=== PATIENT | female | born 1995 | race Caucasian/White ===

== ENCOUNTER 2017-10-05 18:51 | Emergency (ER) | END 2017-10-05 23:40 | disposition home or self-care (01) ==

== ENCOUNTER 2018-03-22 17:30 | Inpatient (IN) | END 2018-03-25 18:15 | disposition home or self-care (01) | DRG 775 ==

== ENCOUNTER 2018-07-11 08:42 | Emergency (ER) | END 2018-07-11 11:01 | disposition home or self-care (01) ==

== ENCOUNTER 2018-08-13 11:15 | Inpatient (IN) | payer MEDICAID ==
[~2018-08-13] VITALS: Wt 46.8 kg
[2018-08-13] VITALS (22 sets, daily range): BP systolic 91–111; BP diastolic 45–63; PULSE 72–105; RESP 13–20
[~2018-08-13 11:15] MED LIST: DESFLURANE 15 MIN ONE; ROCURONIUM 50 MG INJ ONE; SELE118S2 TOP; SUCCINYLCHOLINE CHLORIDE 100 MG/5 ML SYG IV ONE; TERB250T13 PO
[2018-08-13] MEDS ORDERED: SOD CHLORIDE 0.9% 1,000 ML IV STA ×2 (12:13→13:18)
[2018-08-13] MEDS ORDERED: morphine 2 MG INJ IV STA (12:13)
--- NOTE | 2018-08-13 12:16 | ERD ---
ER Documentation Chief Complaint Chief Complaint VAG BLEED WITH PELVIC PAIN X 2 WEEKS; DENIES PREG HPI 23-year-old female , presents to the emergency department, complaining of 2 weeks with intermittent episodes of left pelvic pain, associated with vaginal bleeding. The patient is a status post 4 months ago, she is currently breast-feeding; she has not had any test done at home and she states that she is started being sexually active 2 months without protection. The pain is dull, constant, located in the left lower quadrant, 10/10, associated with dizziness. ROS All systems reviewed and are negative except as per history of present illness. Medications Home Meds Active Scripts Terbinafine Hcl* (Terbinafine Hcl*) 250 Mg Tablet, 250 MG PO DAILY for scalp fungus for 42 Days, #42 TAB Prov:MERCY WOODARD 07/11/18 Selenium Sulfide* (Selenium Sulfide*) 118 Ml Shampoo, 1 APPLIC TOP DAILY for scalp fungus for 30 Days, #1 BOTTLE Prov:MERCY WOODARD 07/11/18 Allergies Allergies: Coded Allergies: No Known Allergies (Verified Allergy, Unknown, 08/13/18) PMhx/Soc Medical and Surgical Hx: pt denies Medical Hx, pt denies Surgical Hx Hx Alcohol Use: No Hx Substance Use: No Hx Tobacco Use: No Smoking Status: Never smoker Physical Exam Vitals Vital Signs Date Temp Pulse Resp B/P (MAP) Pulse Ox O2 O2 Flow FiO2 Time Delivery Rate 08/13/18 88 18 119/72 98 Room Air 13:31 (88) 08/13/18 98.0 91 18 99/54 (69) 99 11:28 Physical Exam Const: Patient pale, in distress due to pain. Head: Atraumatic Eyes: Normal Conjunctiva ENT: Normal External Ears, Nose and Mouth. Neck: Full range of motion. No meningismus. Resp: Clear to auscultation bilaterally Cardio: Regular rate and rhythm, no murmurs Abd: Guarded, tender to palpation in the pelvic area. : Normal external genitalia, cervical motion tenderness, active mild vaginal bleeding. Skin: No petechiae or rashes Back: No midline or flank tenderness Ext: No cyanosis, or edema Neur: Awake and alert Psych: Normal Mood and Affect Result Diagram: 08/13/18 1227 Results 24 hrs Laboratory Tests Test 08/13/18 12:27 08/13/18 12:31 White Blood Count 6.7 10^3/ul Red Blood Count 3.57 10^6/ul Hemoglobin 10.1 g/dl Hematocrit 30.5 % Mean Corpuscular Volume 85.4 fl Mean Corpuscular Hemoglobin 28.3 pg Mean Corpuscular Hemoglobin Concent 33.1 g/dl Red Cell Distribution Width 13.9 % Platelet Count 313 10^3/UL Mean Platelet Volume 9.1 fl Immature Granulocytes % 0.300 % Neutrophils % 71.7 % Lymphocytes % 12.8 % Monocytes % 12.2 % Eosinophils % 2.7 % Basophils % 0.3 % Nucleated Red Blood Cells % 0.0 /100WBC Immature Granulocytes # 0.020 10^3/ul Neutrophils # 4.8 10^3/ul Lymphocytes # 0.9 10^3/ul Monocytes # 0.8 10^3/ul Eosinophils # 0.2 10^3/ul Basophils # 0.0 10^3/ul Nucleated Red Blood Cells # 0.0 10^3/ul Urine Color LAURA Urine Clarity SLIGHTLY CLOUDY Urine pH 6.0 Urine Specific [place] 1.028 Urine Ketones NEGATIVE mg/dL Urine Nitrite NEGATIVE mg/dL Urine Bilirubin NEGATIVE mg/dL Urine Urobilinogen 1+ mg/dL Urine Leukocyte Esterase NEGATIVE Aaron/ul Urine Microscopic RBC > 182 /HPF Urine Microscopic WBC 27 /HPF Urine Squamous Epithelial Cells FEW /HPF Urine Mucus FEW /HPF Urine Hemoglobin 3+ mg/dL Urine Glucose NEGATIVE mg/dL Urine Total Protein 1+ mg/dl POC Beta HCG, Qualitative POSITIVE Current Medications Medications Dose Sig/Ramila Start Time Status Last (Trade) Ordered Route PRN Stop Time Admin Dose Reason Admin Sodium 1,000 ml @ Q1H STAT 08/13/18 DC 08/13/18 Chloride 1,000 mls/hr IV 12:13 12:33 08/13/18 13:12 Morphine 1 mg ONCE STAT 08/13/18 DC 08/13/18 Sulfate IV 12:13 12:33 (morphine) 08/13/18 12:18 Sodium 1,000 ml @ Q1H STAT 08/13/18 08/13/18 Chloride 1,000 mls/hr IV 13:18 13:46 08/13/18 14:17 1 mg ONCE STAT 08/13/18 DC 08/13/18 Hydromorphone IV 13:36 13:46 HCl 08/13/18 (Dilaudid) 13:38 Patient: CHINYERE ZUNIGA : 1995 Age: 23 Sex: F MR #: [id number] DOS: 08/13/18 1213 Ordering MD: RADHA MARTINES MD Location: [facility] [place] Room/Bed: PROCEDURE: US OB. CLINICAL INDICATION: First trimester hemorrhage. Left pelvic pain. TECHNIQUE: Transabdominal and transvaginal views of the pelvis are available for review. COMPARISON: No prior studies are available for comparison. FINDINGS: The uterus is anteverted. It measures 6.2 by 3.2 by 4.8 cm. Uterus is of normal contour and echogenicity. No intrauterine gestation sac is present. Endometrial stripe complex is well demarcated. There is no fluid within the canal. The ovaries are not confidently visualized. There is a small to moderate volume of free fluid. Noted is a 9.3 x 3.0 x 9.0 cm complex mass with heterogeneous echogenicity anterior to the uterus. This may represent a large clot. IMPRESSION: No intrauterine gestation seen. The ovaries were not identified. Small to moderate volume free fluid pelvis. 9.3 x 3.0 x 9.0 cm complex heterogeneous mass anterior to the uterus. This may represent a large blood clot. Ruptured ectopic cannot be ruled out. Correlation with beta HCG levels is strongly recommended. .Raymundo Ballard MD, MD Date Time Electronically viewed and signed by .Raymundo Ballard MD, MD on 08/13/2018 13:09 .A/ CC: RADHA MARTINES MD [phone] Procedures/MDM Differential diagnosis include but not limited to: UTI, threatening , incomplete versus complete , ectopic , physiologic implantation bleeding, molar . Physical examination and clinical presentation most likely consistent with ruptured ectopic . Dr. Cardozo OB oncall contacted at 13:15h; case d/w Dr. Cardozo, last PO 20:00hs; Dr Cardozo will contact OR. Results and clinical impression discussed with patient who agrees with management. The patient was instructed regarding the outcomes and the potential complications. Disclaimer: Inadvertent spelling and grammatical errors are likely due to EHR/dictation software use and do not reflect on the overall quality of patient care. Also, please note that the electronic time recorded on this note does not necessarily reflect the actual time of the patient encounter. Departure Diagnosis: Primary Impression: Vaginal bleeding Additional Impression: Ruptured ectopic Condition: Stable RADHA MARTINES MD Aug 13, 2018 12:16
[2018-08-13] MEDS ORDERED: HYDROmorphONE 1 MG/ML SYG IV STA (13:36)
--- NOTE | 2018-08-13 14:11 | PREAC ---
Date/Time of Note Date/Time of Note DATE: 08/13/18 TIME: 14:10 Anesthesia Eval and Record Evaluation Time Pre-Procedure Interview DATE: 08/13/18 TIME: 14:10 Age 23 Sex female NPO: 8 hrs Preoperative diagnosis ectopic Planned procedure Laproscopic Salpingectomy Past Medical History Past Medical History: None Surgery & Anesthesia Issues No known issue Meds Anticoagulation: No Beta Dona within 24 hr: No Reason Beta Dona not given: Pt. not on B-Dona Active Scripts Terbinafine Hcl* (Terbinafine Hcl*) 250 Mg Tablet, 250 MG PO DAILY for scalp fungus for 42 Days, #42 TAB Prov:MERCY WOODARD DO 07/11/18 Selenium Sulfide* (Selenium Sulfide*) 118 Ml Shampoo, 1 APPLIC TOP DAILY for scalp fungus for 30 Days, #1 BOTTLE Prov:MERCY WOODARD DO 07/11/18 Current Medications Sodium Chloride 1,000 ml @ 1,000 mls/hr Q1H STAT IV Last administered on 08/13/18at 13:46; Admin Dose 1,000 MLS/HR; Start 08/13/18 at 13:18; Stop 08/13/18 at 14:17 Meds reviewed: Yes Allergies Coded Allergies: No Known Allergies (Verified Allergy, Unknown, 08/13/18) Allergies Reviewed: Yes Labs/Studies Labs Reviewed: Reviewed by anesthesiologist Result Diagram: 08/13/18 1227 Laboratory Tests 08/13/18 12:27 test: Positive Studies: ECG Pre-procedure Exam Last vitals Vital Signs Date Temp Pulse Resp B/P (MAP) Pulse Ox O2 O2 Flow FiO2 Time Delivery Rate 08/13/18 88 18 119/72 98 Room Air 13:31 (88) 08/13/18 98.0 11:28 Airway: Adequate mouth opening, Adequate thyromental dist Mallampati: Mallampati II Teeth: Normal Lung: Normal Heart: Normal ASA Physical Status ASA physical status: 2 Emergency: None Planned Anesthetic General/MAC: ETT Nerve block: TAP (bilateral) Pre-operative Attestations Prior to commencing anesthesia and surgery, the patient was re-evaluated, there was verification of: *The patient's identity *The results of appropriate recent lab work and preoperative vital signs *The above evaluation not changing prior to induction *Anesthetic plan, risk benefits, alternative and complications discussed with patient/family; questions answered; patient/family understands, accepts and wishes to proceed. ELIJAH PATTEN Aug 13, 2018 14:11
[2018-08-13] MEDS ORDERED: METOCLOPRAMIDE 10 MG INJ IV PRN (14:30)
[2018-08-13] MEDS ORDERED: DIPHENHYDRAMINE 50 MG INJ IV PRN (14:30)
[2018-08-13] MEDS ORDERED: FENTAnyl 50 MCG/ML VIAL IV PRN ×2 (14:30)
[2018-08-13] MEDS ORDERED: HYDROmorphONE 1 MG/5 ML IV SYRINGE IV PRN ×3 (14:30)
[2018-08-13] MEDS ORDERED: ALBUTEROL 0.083% (NEB) 2.5 MG/3 ML AMP HHN PRN (14:30)
[2018-08-13] MEDS ORDERED: MEPERIDINE 25 MG INJ IV PRN (14:30)
[2018-08-13] MEDS ORDERED: ONDANSETRON 4 MG INJ IV PRN ×2 (14:30→18:00)
--- NOTE | 2018-08-13 14:33 | CONS ---
Date/Time of Note Date/Time of Note DATE: 08/13/18 TIME: 14:21 Assessment/Plan Assessment/Plan Assessment/Plan A left tubal poss rutured with hemoperitoneum P exp lap left salphingectomy Result Diagram: 08/13/18 1227 Results 24hrs Laboratory Tests Test 08/13/18 12:27 08/13/18 12:31 White Blood Count 6.7 # Red Blood Count 3.57 L Hemoglobin 10.1 L Hematocrit 30.5 L Mean Corpuscular Volume 85.4 Mean Corpuscular Hemoglobin 28.3 L Mean Corpuscular Hemoglobin Concent 33.1 Red Cell Distribution Width 13.9 Platelet Count 313 # Mean Platelet Volume 9.1 Immature Granulocytes % 0.300 Neutrophils % 71.7 Lymphocytes % 12.8 L Monocytes % 12.2 H Eosinophils % 2.7 Basophils % 0.3 Nucleated Red Blood Cells % 0.0 Immature Granulocytes # 0.020 Neutrophils # 4.8 Lymphocytes # 0.9 Monocytes # 0.8 Eosinophils # 0.2 Basophils # 0.0 Nucleated Red Blood Cells # 0.0 Urine Color LAURA Urine Clarity SLIGHTLY CLOUDY A Urine pH 6.0 Urine Specific [place] 1.028 Urine Ketones NEGATIVE Urine Nitrite NEGATIVE Urine Bilirubin NEGATIVE Urine Urobilinogen 1+ H Urine Leukocyte Esterase NEGATIVE Urine Microscopic RBC > 182 H Urine Microscopic WBC 27 H Urine Squamous Epithelial Cells FEW Urine Mucus FEW A Urine Hemoglobin 3+ H Urine Glucose NEGATIVE Urine Total Protein 1+ H Beta HCG, Quantitative 1922.7 POC Beta HCG, Qualitative POSITIVE H Consultation Date/Type/Reason Admit Date/Time 08/13/18 Date of Consultation: Aug 13, 2018 Type of Consult OBGYN Reason for Consultation ruptured ectopic Requesting Provider: RADHA MARTINES MD Hx of Present Illness 23 yrs old had 4mo ago has been on breast feeding c/o LLQ pain and vaginal bleeding . u/s revealed no IUP mod amount of blodd in the [place] , poss ruptured tubal admit and prepare for surgery for exp lap and lt salphingectomy as in HPI Constitutional: no complaints, improved Eyes: no complaints ENT: no complaints Respiratory: no complaints Cardiovascular: no complaints Gastrointestinal: pain (llq pain) Genitourinary: bleeding (vaginal bleeding), dysuria Musculoskeletal: no complaints Skin: no complaints Neurologic: no complaints Endocrine: no complaints Lymphatic: no complaints Psychological: no complaints Immunologic: no complaints Past Medical History Medical History: no pertinent history Medications Current Medications Hydromorphone HCl (Dilaudid) 0.2 mg PACU PRN IV MILD PAIN LEVEL 1-3; Start 08/13/18 at 14:30; Stop 08/13/18 at 21:00 Hydromorphone HCl (Dilaudid) 0.4 mg PACU PRN IV MODERATE PAIN LEVEL 4-6; Start 08/13/18 at 14:30; Stop 08/13/18 at 21:00 Hydromorphone HCl (Dilaudid) 0.6 mg PACU PRN IV SEVERE PAIN LEVEL 7-10; Start 08/13/18 at 14:30; Stop 08/13/18 at 21:00 Fentanyl (Sublimaze) 25 mcg PACU ORDER PRN IV MILD PAIN LEVEL 1-3; Start 08/13/18 at 14:30; Stop 08/13/18 at 21:00 Fentanyl (Sublimaze) 50 mcg PACU ORDER PRN IV MODERATE PAIN LEVEL 4-6; Start 08/13/18 at 14:30; Stop 08/13/18 at 21:00 Ondansetron HCl (Zofran Inj) 4 mg PACU ORDER PRN IV NAUSEA AND/OR VOMITING; Start 08/13/18 at 14:30; Stop 08/13/18 at 21:00 Metoclopramide HCl (Reglan) 10 mg PACU ORDER PRN IV NAUSEA AND/OR VOMITING; Start 08/13/18 at 14:30; Stop 08/13/18 at 21:00 Albuterol (Proventil 0.083% (Neb)) 2.5 mg PACU ORDER PRN HHN WHEEZING; Start 08/13/18 at 14:30; Stop 08/13/18 at 21:00 Meperidine HCl (Demerol) 25 mg PACU ORDER PRN IV POST OPERATIVE SHIVERING; Start 08/13/18 at 14:30; Stop 08/13/18 at 21:00 Diphenhydramine HCl (Benadryl) 25 mg PACU ORDER PRN IV PRURITUS; Start 08/13/18 at 14:30; Stop 08/13/18 at 21:00 Allergies: Coded Allergies: No Known Allergies (Verified Allergy, Unknown, 08/13/18) Past Surgical History Past Surgical Hx: no surgical history Family History Significant Family History: no pertinent family hx Social History Alcohol Use: none Smoking Status: Current every day smoker Drug Use: none Exam/Review of Systems Vital Signs Vitals Vital Signs Date Temp Pulse Resp B/P (MAP) Pulse Ox O2 O2 Flow FiO2 Time Delivery Rate 08/13/18 88 18 119/72 98 Room Air 13:31 (88) 08/13/18 98.0 11:28 Exam Constitutional: alert, oriented, well developed Psych: no complaints, nl mood/affect Head: normocephalic, atraumatic Eyes: nl conjunctiva, EOMI, nl lids, nl sclera, PERRL ENMT: nl external ears & nose, nl lips & teeth, nl nasal mucosa & septum Neck: supple, non-tender Respiratory: clear to auscultation, normal air movement Cardiovascular: regular rate and rhythm, nl pulses Gastrointestinal: soft, non-tender, tender Genitourinary - Female: uterus (no IUP) Musculoskeletal: nl extremities to inspection, nl gait and stance Extremities: normal pulses Neurological: CAREER SERVICES COORDINATOR II-XII intact, nl mental status, nl speech, nl strength Skin: nl turgor; No rash or lesions Lymph: nl lymph nodes Medications Medications Current Medications Hydromorphone HCl (Dilaudid) 0.2 mg PACU PRN IV MILD PAIN LEVEL 1-3; Start 08/13/18 at 14:30; Stop 08/13/18 at 21:00 Hydromorphone HCl (Dilaudid) 0.4 mg PACU PRN IV MODERATE PAIN LEVEL 4-6; Start 08/13/18 at 14:30; Stop 08/13/18 at 21:00 Hydromorphone HCl (Dilaudid) 0.6 mg PACU PRN IV SEVERE PAIN LEVEL 7-10; Start 08/13/18 at 14:30; Stop 08/13/18 at 21:00 Fentanyl (Sublimaze) 25 mcg PACU ORDER PRN IV MILD PAIN LEVEL 1-3; Start at 14:30; Stop 08/13/18 at 21:00 Fentanyl (Sublimaze) 50 mcg PACU ORDER PRN IV MODERATE PAIN LEVEL 4-6; Start 08/13/18 at 14:30; Stop 12/29/18 at 21:00 Ondansetron HCl (Zofran Inj) 4 mg PACU ORDER PRN IV NAUSEA AND/OR VOMITING; Start 08/13/18 at 14:30; Stop 08/13/18 at 21:00 Metoclopramide HCl (Reglan) 10 mg PACU ORDER PRN IV NAUSEA AND/OR VOMITING; Start 08/13/18 at 14:30; Stop 08/13/18 at 21:00 Albuterol (Proventil 0.083% (Neb)) 2.5 mg PACU ORDER PRN HHN WHEEZING; Start 08/13/18 at 14:30; Stop 08/13/18 at 21:00 Meperidine HCl (Demerol) 25 mg PACU ORDER PRN IV POST OPERATIVE SHIVERING; Start 08/13/18 at 14:30; Stop 08/13/18 at 21:00 Diphenhydramine HCl (Benadryl) 25 mg PACU ORDER PRN IV PRURITUS; Start 08/13/18 at 14:30; Stop 08/13/18 at 21:00 JARAD STONER MD Aug 13, 2018 14:32
[2018-08-13] MEDS ORDERED: ROPIVACAINE 0.5 % 30 ML VIAL ONE (15:33)
[2018-08-13] MEDS ORDERED: FENTAnyl 50 MCG/ML VIAL ONE (15:33)
[2018-08-13] MEDS ORDERED: PHENYLephrine (100 MCG/ML) 10ML SYG ONE (15:43)
[2018-08-13] MEDS ORDERED: LIDOCAINE 100 MG SYRINGE ONE (15:54)
[2018-08-13] MEDS ORDERED: PROPOFOL 20 ML ONE (15:54)
[2018-08-13] MEDS ORDERED: SUCCINYLCHOLINE CHLORIDE 100 MG/5 ML SYG IV ONE (15:54)
[2018-08-13] MEDS ORDERED: GLYCOPYRROLATE 0.4 MG INJ ONE (15:54)
[2018-08-13] MEDS ORDERED: NEOSTIGMINE 3 MG/3 ML SYRINGE ONE (15:54)
[2018-08-13] MEDS ORDERED: CEFAZOLIN 1 GM INJ ONE (15:54)
--- NOTE | 2018-08-13 17:14 | NUR ---
NURSING RR RECEIVED PT FROM OR NOT IN ANY DISTRESS /PT HAS DSG TO LOWER ABDOMEN CLEAN AND DRY .IV TO R AC G20 NEEDLE WITH LR INFUSING WELL .WADE PAD CLEAN NO BLEEDING .F/C TO GRAVITY WITH CLEAR YELLOW URINE .
--- NOTE | 2018-08-13 17:45 | SIPON ---
Date/Time of Note Date/Time of Note DATE: 08/13/18 TIME: 17:40 Operative Report Preoperative Diagnosis ruptured left tubal hemoperitoneum Postoperative Diagnosis same as above Operation/Procedure Performed exp laprotomy left salphingectomy evacuation of blood partial omentectomy Surgeon see signature line family assistant MT Anesthesia: general Estimated blood loss: 10 - 50 ml's Specimen left follopian tube portion of omentum Grafts/Implants Complications none JARAD STONER MD Aug 13, 2018 17:45
[2018-08-13] MEDS ORDERED: HYDROCODONE/APAP (5/325) TAB PO PRN (18:00)
--- NOTE | 2018-08-13 18:30 | NUR ---
TRANSFER PT TRANSFER TO [facility] IN STABLE CONDITION REPORT GIVEN TO RN CARE PROVIDED PER [facility] STANDARDS.
--- NOTE | 2018-08-13 18:32 | PAC ---
Date/Time of Note Date/Time of Note DATE: 08/13/18 TIME: 18:32 Post-Anesthesia Notes Post-Anesthesia Note Last documented vital signs Vital Signs Date Temp Pulse Resp B/P (MAP) Pulse Ox O2 O2 Flow FiO2 Time Delivery Rate 08/13/18 80 17 109/63 100 Room Air 18:25 (78) 08/13/18 98.6 18:05 Activity: WNL Respiratory function: WNL Cardiovascular function: WNL Mental status: Baseline Pain reasonably controlled: Yes Hydration appropriate: Yes Nausea/Vomiting absent: Yes ELIJAH PATTEN Aug 13, 2018 18:32
[2018-08-13] MEDS: IBUPROFEN 600 MG TAB PO SCH (19:03)
--- NOTE | 2018-08-13 19:32 | NUR ---
EOSS: Patient alert and oriented X4 spouse and patient's mother at bedside, patient currently complaining of pain to surgical site 03/25 Ibupropen given per orders, patient instructed on other option of pain medication, spouse verbalized understanding, surgical dressing C/D/I, no signs of distress VS:99/58, HR 76, 99%RA, pain 03/25. Report given to oncoming VALERIO Jones BSN, Rn
[2018-08-13] MEDS: OXYCODONE/ACETAMINOPHEN (5/325) TAB PO PRN (20:00)
[2018-08-13] MEDS: CEFAZOLIN 2 GM/50 ML (PMX) 50 ML IVPB SCH (21:50)
[2018-08-13] MEDS ORDERED: morphine 4 MG/ML VIAL IV PRN (23:00)
[2018-08-14] VITALS: BP 91/52; PULSE 89; RESP 17
--- NOTE | 2018-08-14 00:30 | NUR ---
RN NOTE Patient complained that she still in a lot of pain, even [place] and percocet had given already, notified Dr quinonez ordered breakktrough pain Morphine
[2018-08-14] MEDS: IBUPROFEN 600 MG TAB PO SCH ×4 (00:35→17:40)
[2018-08-14 05:00] VITALS: BP 94/50; PULSE 81; RESP 18
[2018-08-14] MEDS: CEFAZOLIN 2 GM/50 ML (PMX) 50 ML IVPB SCH ×3 (05:32→22:23)
--- NOTE | 2018-08-14 06:10 | NUR ---
EOSS Patien alert oriented, vital signs stable no respiratory distress. patient stated that she felt more better pain was already controlled. instructed and encouraged to use incentive spirometry. Dressing was CDI in the lower abdomen no perineal bleeding noted. Encouraged frequent reposition. Tolerated Clear liquid diet no nausea no vomting. FC patent draining via gravity with yellow urine output. All needs attended, call light is within reach.
[2018-08-14 07:15] VITALS: BP 89/48; PULSE 72; RESP 16
[2018-08-14 07:45] VITALS: BP 92/51; PULSE 75; RESP 18
[2018-08-14 14:50] VITALS: BP 94/52; PULSE 79; RESP 15
[2018-08-14] MEDS: OXYCODONE/ACETAMINOPHEN (5/325) TAB PO PRN ×2 (15:02→20:21)
--- NOTE | 2018-08-14 16:37 | QN ---
Documentation Comment PoD# 1 is stable No VB +Flatus +voids VS stable Gen NAD Abd soft NT ND Incisons Intact Genitalia No blood at perineum --->Ambulation --->Discharge plan tomorrow NICOLE RUSSO M.D. Aug 14, 2018 16:37
--- NOTE | 2018-08-14 17:25 | NUR ---
EOSS: MD in to round on patient orders to remove surgical dressing and simmons catheter, patient instructed to call for assistance to get to bathroom, surgical dressing left with steri strips in place, no signs and symptoms of infection, patient advanced to regular diet, patient tolerating liquids will. VSS, no signs and symptoms of distress. Keshia MARIEN, RN
[2018-08-14 20:02] VITALS: BP 96/54; PULSE 84; RESP 18
[2018-08-15] MEDS: IBUPROFEN 600 MG TAB PO SCH ×2 (00:19→06:08)
[2018-08-15 02:09] VITALS: BP 89/51; PULSE 79; RESP 18
[2018-08-15 02:33] VITALS: BP 92/52; PULSE 73
[2018-08-15] MEDS: CEFAZOLIN 2 GM/50 ML (PMX) 50 ML IVPB SCH (06:08)
--- NOTE | 2018-08-15 06:26 | NUR ---
END OF SHIFT SUMMARY: PATIENT RESTING COMFORTABLY. V/S STABLE. VOIDING WELL. PATIENT GIVEN PERCOCET 2 TABS X 1 THIS SHIFT WITH ADEQUATE PAIN RELIEF, WELL SCHEDULED MOTRIN AND ANCEF. STERI-STRIPS ARE CLEAN, DRY AND INTACT. PATIENT TOLERATING REGULAR DIET. CALL LIGHT AND PHONE IN REACH. INSTRUCTED PATIENT TO CALL FOR ASSISTANCE. FAMILY MEMBER AT BEDSIDE. BED ALARM SET. WILL ENDORSE PLAN OF CARE TO AM RN.
[2018-08-15 07:18] VITALS: BP 99/62; PULSE 77; RESP 18
--- NOTE | 2018-08-15 08:18 | OPR ---
DATE OF OPERATION: 08/13/2018 PREOPERATIVE DIAGNOSIS: Ruptured left tubal , hemoperitoneum. POSTOPERATIVE DIAGNOSIS: Ruptured left tubal , hemoperitoneum. OPERATION PERFORMED: Exploratory laparotomy, left salpingectomy, evacuation of blood, partial omente ctomy. LIFE SKILLS WORKER: zoning technician. ANESTHESIA: General. ESTIMATED BLOOD LOSS: From the procedure less than 50 mL. ANESTHESIOLOGIST: Dr. Davalos. PROCEDURE: Under the proper induction of general anesthesia, the patient was placed in the frog posi tion. Ny catheter was introduced into the bladder under sterile condition, repositioned to supine . Abdominal wall was prepped and draped in usual aseptic manner. A transverse incision was made jus t above the mons pubis approximately 5 cm in length. This incision was carried down through the subc utaneous tissue to the anterior recti fascia, which was incised transversely in length of the incisio n. Fascial flap was created by blunt and sharp dissection of tendinous attachment upward and downwar d. Two rectus muscles split in midline. Peritoneal cavity was trying to be entered but it was very difficult since the underlying tissue was onto the parietal peritoneum so carefully searched for the free area and entered digitally. Small size of the Idris was introduced into the abdominal cavity. All the blood was evacuated with the blood clots which was also removed and the left fallopian tube was searched, which was difficult due to the surrounding tissue, which is mostly omental tissue was a dherent to the left adnexal area, which was digitally and then the left tube was found out, which was completely ruptured and bleeding not profusely but bleeding continuously like oozing from the fimbria to the half of the way of the fallopian tube, which was clamped doubly and then stick lig ature was placed on the pedicle, and the tube was removed, and the pedicle was closed with a #1 chrom ic, which was doubled and tied first and then second, which was doubly ligated with stick ligature. No bleeder was noted, but from the omentum which was attached to the left adnexa, there was some reac tion to the end of the omental digital portion of the omentum and also bleeding, which was clamped an d the doubly ligated with the omental portion was removed, and the pedicle was ligated with #1 chromi c catgut. The other area was searched and a right side of adnexa was intact and then no other bleedi ng noted except the peritoneal surface continuously oozing which was grasped and the peritoneal cavit y was closed with 0 chromic catgut and muscle closed with 0 chromic catgut in continuous manner. Fas rebekah closed with a #1 Vicryl in continuous manner, and the subcutaneous tissue irrigated with water. This layer was approximated with a 2-0 plain in continuous manner. Skin closed with a 4-0 Monocryl i n subcuticular manner. Steri-Strip applied. A pressure dressing applied. Estimated blood loss was less than 50 mL from the procedure. Evacuation of amount of blood, which was somewhat confused becau se they used the irrigation and they did not measure before they used, so less than 500 mL. The tony ent withstood procedure well and was sent to recovery room in stable condition. Dictated By: HEVER العلي/JROGE Conf#: [id number] DID#: [id number] CC: HEVER STONER MD;*EndCC*
--- NOTE | 2018-08-15 11:56 | NUR ---
DISCHARGE NOTE: With MARTHA Solorio for [place] translation, patient educated on all discharge instructions and patient verbalized understanding. Patient's IV access was removed with catheter tip intact and dry gauze applied to site. Patient had no questions at time of discharge. Patient stable for discharge.
--- NOTE | 2018-08-15 11:57 | QN ---
Documentation Comment PoD# 2 is stable No VB +Flatus +voids VS stable Gen NAD Abd soft NT ND Incision Intact Genitalia No blood at perineum --->Ambulation --->Discharge plan NICOLE RUSSO M.D. Aug 15, 2018 11:57
--- NOTE | 2018-08-15 11:58 | DS ---
Date/Time of Note Date/Time of Note DATE: 08/15/18 TIME: 11:57 Discharge Summary Admission/Discharge Info Admit Date/Time Aug 13, 2018 at 20:15 Discharge Date/Time Jul Discharge Diagnosis Ruptured Ectopic Patient Condition: Good Hospital Course uneventful Home Meds Active Scripts Terbinafine Hcl* (Terbinafine Hcl*) 250 Mg Tablet, 250 MG PO DAILY for scalp fungus for 42 Days, #42 TAB Prov:MERCY WOODARD DO 07/11/18 Selenium Sulfide* (Selenium Sulfide*) 118 Ml Shampoo, 1 APPLIC TOP DAILY for scalp fungus for 30 Days, #1 BOTTLE Prov:MERYC WOODARD DO 07/11/18 Primary Care Provider Care Physician No Primary NICOLE RUSSO M.D. Aug 15, 2018 11:58
== END 2018-08-15 12:45 | disposition home or self-care (01) | DRG 817 ==
LOC: FTE 11:15 → SDS 13:50 → REC 17:35 → MS1 18:58 → OBSVTOIN 20:15
PROVIDERS: ADMIT Obstetrics & Gynecology; ATTEND Obstetrics & Gynecology
PROC: 10T20ZZ Resection of Products of Conception, Ectopic, Open Approach (ICD-10-PCS; principal; 2018-08-15)
PROC: 0UT60ZZ Resection of Left Fallopian Tube, Open Approach (ICD-10-PCS; 2018-08-15)
PROC: 0DBU0ZZ Excision of Omentum, Open Approach (ICD-10-PCS; 2018-08-15)
PROC: 0U9 Female Reproductive System, Drainage (ICD-10-PCS; 2018-08-15)
DX: O00.102 Left tubal pregnancy without intrauterine pregnancy (principal); K66.1 Hemoperitoneum
CPT/HCPCS: 36415; 76801; 76817; 81001; 81025; 84702; 85025; 86850; 86900; 86901; 87086; 88305; 96374; 96375; 96376; 99217; G0378; J0690; J1170; J1200; J2001; J2175; J2270; J2370; J2405; J2710; J2795; J3010; J7030